=== PATIENT | male | born 2000 | race Caucasian/White ===

== ENCOUNTER 2018-11-15 00:05 | Emergency (ER) | payer OTHER, BC ==
[~2018-11-15] VITALS: Ht 180.3 cm; Wt 52.2 kg
== END 2018-11-15 00:48 | disposition home or self-care (01) ==
LOC: ER 00:05
DX: S61.217A Laceration without foreign body of left little finger without damage to nail, initial encounter (principal); W18.02XA Striking against glass with subsequent fall, initial encounter; Y99.0 Civilian activity done for income or pay
CPT/HCPCS: 99282

== ENCOUNTER → 2020-11-23 | Outpatient (CLI) | payer OTHER, BC ==
[2020-11-24 09:10] LABS: HBSAG SCREEN Negative (Negative); HEP A AB, IGM Negative (Negative); HEP B CORE AB, IGM Negative (Negative); HEP C VIRUS AB <0.1 (0.0-0.9); HIV SCREEN 4TH GENERATION WRFX Non Reactive (Non Reactive)
[2020-11-26 00:10] LABS: CHLAMYDIA TRACHOMATIS, NAA Negative (Negative)
== END | disposition home or self-care (01) ==
LOC: LAB SHORT 15:37
PROVIDERS: Family Medicine
DX: Z72.51 High risk heterosexual behavior (principal)
CPT/HCPCS: 80074; 86592; 87389; 87491; 87591

== ENCOUNTER → 2022-06-30 | Outpatient (CLI) | payer BC | END | disposition home or self-care (01) | LOC: LAB 16:15 → LAB SHORT 16:15 | DX: J02.9 Acute pharyngitis, unspecified (principal) | CPT/HCPCS: 87081 ==